=== PATIENT | male | born 1995 | race American Indian/Alaskan Native ===

== ENCOUNTER 2019-03-26 20:41 | Emergency (ER) | payer OTHER ==
--- NOTE | 2019-03-26 21:21 | EDM.PDOC ---
ED HPI GENERAL MEDICAL PROBLEM - General Stated Complaint: THINKS HE HAD ALCOHOL POSIONING Time Seen by Provider: 03/26/19 21:21 Source of Information: Reports: Patient History Limitations: Reports: No Limitations - History of Present Illness INITIAL COMMENTS - FREE TEXT/NARRATIVE: 23-year-old male who reports that he has been on a drinking been since of last week. His last alcohol consumption was approximate 4 AM today through the day he has had vomiting times about 10. He has had diarrhea 2. There's been no blood in either of these. He has felt "off" all through the day and that he has felt weak and dizzy with tingling in his arms, legs and his chest. He feels somewhat anxious. He also feels somewhat short of breath and he does appear to be hyperventilating. He denies any pain. He rates his pain as a 0/10. He has had urine output today. There's been no dysuria or hematuria. He has had cold sweats off and on through the day. He also admits to using marijuana. He tells me that he doesn't remember much of this weekend. There are no other associated signs or symptoms. There are no other modifying factors. 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 Surgical history as listed below.) - Past Surgical History HEENT Surgical History: Reports: Tonsillectomy Musculoskeletal Surgical History: Reports: Other (See Below) (Left knee ACL repair, open procedure) Social & Family History - Tobacco Use Smoking Status *Q: Current Every Day Smoker - Alcohol Use Alcohol Use History: Yes Alcohol Use Frequency: Binges, Weekly - Recreational Drug Use Recreational Drug Use: Yes Drug Use in Last 12 Months: Yes Recreational Drug Type: Reports: Cocaine (He reports that he has tried cocaine.) , Marijuana/Hashish - Living Situation & Occupation Living situation: Reports: with Family Occupation: Employed (He is a concrete paving machine operator.) ED ROS GENERAL - Review of Systems Review Of Systems: See Below Constitutional: Reports: Malaise, Weakness HEENT: Reports: Other (Dry mouth) Respiratory: Reports: Shortness of Breath (Feelings of shortness of breath) Cardiovascular: Reports: Lightheadedness GI/Abdominal: Reports: Diarrhea, Nausea, Vomiting : Reports: No Symptoms Musculoskeletal: Reports: No Symptoms Skin: Reports: Diaphoresis (Off and on through the day) Neurological: Reports: Dizziness Psychiatric: Reports: Anxiety Hematologic/Lymphatic: Reports: No Symptoms Immunologic: Reports: No Symptoms ED EXAM, GENERAL - Physical Exam Exam: See Below Exam Limited By: No Limitations General Appearance: Alert, WD/WN, Anxious, Mild Distress, Other (Appears nontoxic) Eye Exam: Bilateral Eye: Abnormal EOM, Abnormal Pupil Ears: Normal External Exam, Hearing Grossly Normal Ear Exam: Bilateral Ear: Auricle Normal Nose: Normal Inspection, Normal Mucosa, No Blood Throat/Mouth: Normal Voice, No Airway Compromise, Other (Dry mucous membranes) Head: Atraumatic, Normocephalic Neck: Normal Inspection, Supple, Non-Tender, Full Range of Motion Respiratory/Chest: No Respiratory Distress, Lungs Clear, Normal Breath Sounds, No Accessory Muscle Use, Chest Non-Tender Cardiovascular: Normal Peripheral Pulses, Regular Rate, Rhythm, No Murmur Peripheral Pulses: 2+: Radial (L), Radial (R), Dorsalis Pedis (L), Dorsalis Pedis (R) GI/Abdominal: Normal Bowel Sounds, Soft, Non-Tender, No Mass Back Exam: Normal Inspection Extremities: Normal Inspection, Normal Range of Motion, Non-Tender, No Pedal Edema, Normal Capillary Refill Neurological: Alert, Oriented, CN II-XII Intact, Normal Cognition, No Motor/ Sensory Deficits Psychiatric: Anxious, Tearful Skin Exam: Dry, Intact, Normal Color, No Rash EKG INTERPRETATION EKG Date: 03/26/19 Time: 22:18 Rhythm: NSR Rate (Beats/Min): 64 [place]: Normal P-Wave: Present QRS: Normal ST-T: Normal QT: Normal WV/PQ Interval: Normal intervals Comparison: NA - No Prior EKG EKG Interpretation Comments: Normal EKG. Course - Vital Signs Last Recorded V/S: Last Vital Signs Temp 36.6 C 03/26/19 21:25 Pulse 88 03/26/19 21:25 Resp 18 03/26/19 21:25 BP 155/99 H 03/26/19 21:25 Pulse Ox 99 03/26/19 21:25 - Orders/Labs/Meds Orders: Active Orders 24 hr Category Date Time Status EKG Documentation Completion [RC] ASDIRECTED Care 03/26/19 21:38 Active Sodium Chloride 0.9% [Saline Flush] Med 03/26/19 21:35 Active 10 ml FLUSH ASDIRECTED PRN Peripheral IV Insertion Adult [OM.PC] Routine Oth 03/26/19 21:35 Ordered EKG 12 Lead [EK] Routine Ther 03/26/19 21:37 Ordered Medication Orders Sodium Chloride (Saline Flush) 10 ml FLUSH ASDIRECTED PRN PRN Reason: Keep Vein Open Labs: Laboratory Tests 03/26/19 03/26/19 03/26/19 Range/Units 21:55 21:55 21:55 WBC 9.4 (4.5-12.0) X10-3/uL RBC 5.55 (4.30-5.75) x10(6)uL Hgb 16.5 (13.5-17.8) g/dL Hct 48.1 (30.0-51.3) % MCV 86.6 (80-96) fL MCH 29.8 (27.7-33.6) pg MCHC 34.4 (32.2-35.4) g/dL RDW 12.0 (11.5-15.5) % Plt Count 208 (125-369) X10(3)uL MPV 8.8 (7.4-10.4) fL Neut % (Auto) 82.0 (46-82) % Lymph % (Auto) 10.9 L (13-37) % [place] % (Auto) 5.4 (4-12) % Eos % (Auto) 0 L (1.0-5.0) % Baso % (Auto) 2 (0-2) % Neut # (Auto) 7.8 (1.6-8.3) # Lymph # (Auto) 1.0 (0.6-5.0) # [place] # (Auto) 0.5 (0.0-1.3) # Eos # (Auto) 0.0 (0.0-0.8) # Baso # (Auto) 0.1 (0.0-0.2) # Sodium 140 (135-145) mmol/L Potassium 3.7 (3.5-5.3) mmol/L Chloride 102 (100-110) mmol/L Carbon Dioxide 28 (21-32) mmol/L BUN 9 (7-18) mg/dL Creatinine 1.0 (0.70-1.30) mg/dL Est Cr Clr Drug Dosing 117.61 mL/min Estimated GFR (MDRD) > 60 (>60) BUN/Creatinine Ratio 9.0 (9-20) Glucose 109 (80-116) mg/dL Calcium 8.8 (8.6-10.2) mg/dL Magnesium 1.6 L (1.8-2.5) mg/dL Total Bilirubin 0.7 (0.1-1.3) mg/dL AST 46 H (5-25) IU/L ALT 59 H (12-36) U/L Alkaline Phosphatase 96 (56-112) IU/L Total Protein 7.4 (6.0-8.0) g/dL Albumin 3.9 (3.5-5.2) g/dL Globulin 3.5 g/dL Albumin/Globulin Ratio 1.1 Urine Opiates Screen (NEGATIVE) Ur Oxycodone Screen (NEGATIVE) Ur Propoxyphene Screen (NEGATIVE) Ur Barbituates Screen (NEGATIVE) Ur Tricyclics Screen (NEGATIVE) Ur Phencyclidine Scrn (NEGATIVE) Ur Amphetamine Screen (NEGATIVE) Urine MDMA Screen (NEGATIVE) U Benzodiazepines Scrn (NEGATIVE) U Cocaine Metab Screen (NEGATIVE) U Marijuana (THC) Screen (NEGATIVE) Ethyl Alcohol < 0.03 (<0.03) % 03/26/19 Range/Units 22:11 WBC (4.5-12.0) X10-3/uL RBC (4.30-5.75) x10(6)uL Hgb (13.5-17.8) g/dL Hct (30.0-51.3) % MCV (80-96) fL MCH (27.7-33.6) pg MCHC (32.2-35.4) g/dL RDW (11.5-15.5) % Plt Count (125-369) X10(3)uL MPV (7.4-10.4) fL Neut % (Auto) (46-82) % Lymph % (Auto) (13-37) % [place] % (Auto) (4-12) % Eos % (Auto) (1.0-5.0) % Baso % (Auto) (0-2) % Neut # (Auto) (1.6-8.3) # Lymph # (Auto) (0.6-5.0) # [place] # (Auto) (0.0-1.3) # Eos # (Auto) (0.0-0.8) # Baso # (Auto) (0.0-0.2) # Sodium (135-145) mmol/L Potassium (3.5-5.3) mmol/L Chloride (100-110) mmol/L Carbon Dioxide (21-32) mmol/L BUN (7-18) mg/dL Creatinine (0.70-1.30) mg/dL Est Cr Clr Drug Dosing mL/min Estimated GFR (MDRD) (>60) BUN/Creatinine Ratio (9-20) Glucose (80-116) mg/dL Calcium (8.6-10.2) mg/dL Magnesium (1.8-2.5) mg/dL Total Bilirubin (0.1-1.3) mg/dL AST (5-25) IU/L ALT (12-36) U/L Alkaline Phosphatase (56-112) IU/L Total Protein (6.0-8.0) g/dL Albumin (3.5-5.2) g/dL Globulin g/dL Albumin/Globulin Ratio Urine Opiates Screen Negative (NEGATIVE) Ur Oxycodone Screen Negative (NEGATIVE) Ur Propoxyphene Screen Negative (NEGATIVE) Ur Barbituates Screen Negative (NEGATIVE) Ur Tricyclics Screen Negative (NEGATIVE) Ur Phencyclidine Scrn Negative (NEGATIVE) Ur Amphetamine Screen Negative (NEGATIVE) Urine MDMA Screen Negative (NEGATIVE) U Benzodiazepines Scrn Negative (NEGATIVE) U Cocaine Metab Screen Negative (NEGATIVE) U Marijuana (THC) Screen Positive H (NEGATIVE) Ethyl Alcohol (<0.03) % Meds: Medications Generic Name Dose Route Start Last Admin Trade Name Freq PRN Reason Stop Dose Admin Sodium Chloride 10 ml 03/26/19 21:35 Saline Flush FLUSH ASDIRECTED PRN Keep Vein Open Discontinued Medications Generic Name Dose Route Start Last Admin Trade Name Jennifer PRN Reason Stop Dose Admin Sodium Chloride 1,000 mls @ 999 mls/hr 03/26/19 21:37 03/26/19 22:01 Normal Saline IV 03/26/19 22:37 999 mls/hr .BOLUS ONE Administration Magnesium Sulfate 2 gm/ Premix 50 mls @ 150 mls/hr 03/26/19 22:54 03/26/19 23 :09 IV 03/26/19 23:13 150 mls/hr ONETIME ONE Administration Ondansetron HCl 4 mg 03/26/19 21:37 03/26/19 22:00 Zofran IVPUSH 03/26/19 21:38 4 mg ONETIME ONE Administration - Re-Assessments/Exams Free Text/Narrative Re-Assessment/Exam: 03/27/19 00:03: Patient feels much improved after IV fluids, IV antiemetics and IV magnesium. His blood tests were reassuring except for slightly low magnesium and some evidence of alcohol related liver disease/inflammation. His urine drug screen was positive for THC as he reported. His alcohol was negative. He appears to have been dehydrated related to his alcohol abuse. I have strongly advised him to avoid alcohol use in the future and to seek substance abuse counseling. He will be discharged home and he is comfortable with this plan for discharge. Departure - Departure Time of Disposition: 00:05 Disposition: Home, Self-Care 01 Condition: Good (Improved) Clinical Impression: Alcohol abuse, Dehydration, Hypomagnesemia - Discharge Information Instructions: Alcohol Use Disorder, Hypomagnesemia, Binge-Drinking Information , Adult, What You Need to Know About Alcohol Abuse and Dependence, Adult, Dehydration, Adult, [id number] Referrals: PCP,None [Primary Care Provider] - Additional Instructions: Your blood tests showed some evidence of alcohol toxicity toward your liver. Your magnesium was also somewhat low. You did appear to be somewhat dehydrated. We corrected the magnesium with some magnesium given IV and we corrected your dehydration with IV fluids. You should avoid alcohol use in the future and I strongly suggest that he seek alcohol abuse counseling. Eat normal meals. Drink plenty of fluids. Rest. Back to the emergency department for trouble breathing, unrelenting vomiting or any other concerning sign or symptom. - My Orders Last 24 Hours: My Active Orders 03/26/19 21:35 Sodium Chloride 0.9% [Saline Flush] 10 ml FLUSH ASDIRECTED PRN Peripheral IV Insertion Adult [OM.PC] Routine 03/26/19 21:37 EKG 12 Lead [EK] Routine 03/26/19 21:38 EKG Documentation Completion [RC] ASDIRECTED - Assessment/Plan Last 24 Hours: My Active Orders 03/26/19 21:35 Sodium Chloride 0.9% [Saline Flush] 10 ml FLUSH ASDIRECTED PRN Peripheral IV Insertion Adult [OM.PC] Routine 03/26/19 21:37 EKG 12 Lead [EK] Routine 03/26/19 21:38 EKG Documentation Completion [RC] ASDIRECTED
[2019-03-26] MEDS ORDERED: Sodium Chloride 0.9% 10 ML Syringe FLUSH PRN (21:35)
[2019-03-26] MEDS ORDERED: Sodium Chloride 0.9% 1,000 ML IV ONE (21:37)
[2019-03-26] MEDS ORDERED: Ondansetron 4 MG/2 ML SDV IVPUSH ONE (21:37)
[2019-03-26] MEDS ORDERED: Magnesium Sulfate/Water 2 GM in Premix Bag 1 BAG IV ONE (22:54)
== END 2019-03-27 00:23 | disposition home or self-care (01) ==
LOC: FB.ED 20:41
DX: F10.10 Alcohol abuse, uncomplicated (principal); Y90.0 Blood alcohol level of less than 20 mg/100 ml; E86.0 Dehydration; E83.42 Hypomagnesemia; F17.200 Nicotine dependence, unspecified, uncomplicated
CPT/HCPCS: 36415; 80053; 80305; 80320; 83735; 85025; 93005; 96361; 96374; 99284; J2405; J3475; J7030; G0480

== ENCOUNTER 2022-04-12 02:30 | Emergency (ER) | payer OTHER ==
[2022-04-12] MEDS ORDERED: Ibuprofen 800 MG Tab PO ONE (02:56)
[2022-04-12] MEDS ORDERED: Diphtheria/Tetanus Toxoids,Adult (Td) 0.5 ML SDV IM ONE (02:57)
[2022-04-12] MEDS ORDERED: Diphtheria,Pertussis(Acell),Tetanus Vaccine 0.5 ML Syringe IM ONE (03:16)
== END 2022-04-12 04:55 | disposition home or self-care (01) ==
LOC: FB.ED 02:30
DX: S60.222A Contusion of left hand, initial encounter (principal); S60.512A Abrasion of left hand, initial encounter; M23.92 Unspecified internal derangement of left knee; Z23 Encounter for immunization; X50.1XXA Overexertion from prolonged static or awkward postures, initial encounter
CPT/HCPCS: 73130-LT; 73562-LT; 90471; 90715; 99284-25; A9270-GY

== ENCOUNTER 2023-01-14 06:52 | Emergency (ER) | payer SELFPAY ==
[2023-01-14] MEDS ORDERED: Sodium Chloride 0.9% 10 ML Syringe FLUSH PRN (07:07)
[2023-01-14] MEDS ORDERED: LORazepam 2 MG/ML SDV IVPUSH ONE (07:08)
[2023-01-14] MEDS ORDERED: OLANZapine 10 MG Vial IM ONE (07:09)
[2023-01-14 07:16] LABS: BASOPHILS PERCENT AUTO 0.8 % (0.3-3.8); EOSINOPHILS PERCENT AUTO 0.6 % (0.1-6.8); HEMATOCRIT 48.2 % (38.3-50.1); HEMOGLOBIN 16.7 g/dL (12.9-17.7); LYMPHOCYTES ABSOLUTE AUTO 2.8 x10-3/uL (0.5-4.5); LYMPHOCYTES PERCENT AUTO 50.3 % (15.8-45.3); MEAN CORPUSCULAR HEMOGLOBIN 29.8 pg (27.0-33.3); MEAN CORPUSCULAR HGB CONC 34.7 g/dL (28.7-35.3); MEAN CORPUSCULAR VOLUME 86.1 fL (80.8-98.7); MEAN PLATELET VOLUME 7.6 fL (6.7-11.0); MONOCYTES ABSOLUTE AUTO 0.5 x10-3/uL (0.0-1.2); NEUTROPHILS ABSOLUTE AUTO 2.2 x10-3/uL (1.7-6.9); NEUTROPHILS PERCENT AUTO 39.3 % (40.3-71.8); PLATELET COUNT,PLT 217 x10(3)uL (117-477); RED CELL DISTRIBUTION WIDTH 14.2 % (12.4-15.0); WHITE BLOOD CELL COUNT,WBC 5.5 x10-3/uL (3.2-10.1)
[2023-01-14 07:24] LABS: BLOOD UREA NITROGEN,BUN 11 mg/dL (7-18); CALCIUM 8.3 mg/dL (8.6-10.2); CARBON DIOXIDE,CO2 27 mmol/L (21-32); CHLORIDE,CL 105 mmol/L (100-110); CREATININE 1.1 mg/dL (0.70-1.30); EST CRCL DRUG DOSING (CG) 103.23 mL/min; ESTIMATED GFR 94 mL/min (>60); GLUCOSE RANDOM 117 mg/dL (80-116); POTASSIUM,K 3.9 mmol/L (3.5-5.3); SODIUM,NA 143 mmol/L (135-145)
[2023-01-14 07:29] LABS: ALANINE AMINOTRANSFERASE,ALT 65 U/L (12-36); ALBUMIN 3.9 g/dL (3.5-5.2); ALKALINE PHOSPHATASE 113 IU/L (56-112); AMYLASE 48 U/L (25-115); ASPARTATE AMNIOTRANSFERASE,AST 91 IU/L (5-25); BILIRUBIN TOTAL 0.4 mg/dL (0.1-1.3); PHOSPHORUS 3.8 mg/dL (2.6-4.6); PROTEIN TOTAL,TP 7.7 g/dL (6.0-8.0)
[2023-01-14 07:49] LABS: ETHANOL BLOOD MEDICAL 0.34 % (<0.03)
[2023-01-14 07:54] LABS: MAGNESIUM 1.8 mg/dL (1.8-2.5)
[2023-01-14] MEDS ORDERED: Sodium Chloride 0.9% 1,000 ML IV SCH ×2 (09:30→09:45)
[2023-01-14 10:17] LABS: AMPHETAMINES SCREEN, URINE NEGATIVE (NEGATIVE); BARBITURATE SCREEN,URINE NEGATIVE (NEGATIVE); BENZODIAZEPINES SCREEN,URINE NEGATIVE (NEGATIVE); METHADONE SCREEN, URINE NEGATIVE (NEGATIVE); METHAMPHETAMINE SCREEN, URINE NEGATIVE (NEGATIVE); OXYCODONE SCREEN,URINE NEGATIVE (NEGATIVE); PROPOXYPHENE SCREEN,URINE NEGATIVE (NEGATIVE); THC SCREEN,URINE NEGATIVE (NEGATIVE)
[2023-01-14 10:18] LABS: BUPRENORPHINE SCREEN,URINE NEGATIVE (NEGATIVE)
[2023-01-14] MEDS ORDERED: Thiamine 100 MG in Sodium Chloride 0.9% 50 ML IV ONE (10:39)
== END 2023-01-14 19:50 | disposition home or self-care (01) ==
LOC: FB.ED 06:52
DX: F10.229 Alcohol dependence with intoxication, unspecified (principal); F19.10 Other psychoactive substance abuse, uncomplicated; F17.210 Nicotine dependence, cigarettes, uncomplicated
CPT/HCPCS: 36415; 80053; 80307; 82150; 83690; 83735; 84100; 84484; 85025; 93005; 96361; 96365; 96372; 96375; 99284; J2060; J2405; J3411; J3490; J7030